=== PATIENT | female | born 1955 | race Hispanic/Latino ===

== ENCOUNTER → 2017-04-24 | Outpatient (CLI) | payer OTHER ==
[~2017-04-24] MED LIST: ALENDRONATE SOD35 MG PO; ANTIVERT25 MG PO; FENTANYL1 EAC5 TD; FLEXERIL5 MG PO; IBUPROFEN400 MG PO; LIPITOR20 MG PO; NAPROXEN500 MG PO; OMEPRAZOLE40 M1 PO; PREDNISONE10 MG PO; PRILOSEC40 MG PO; TRAMADOL HCL50 MG PO; ZOFRAN4 MG PO
== END | disposition home or self-care (01) ==
LOC: AMB 07:35
PROC: 03BS0ZX Excision of Right Temporal Artery, Open Approach, Diagnostic (ICD-10-PCS; principal; 2017-04-24)
DX: R51 Headache (principal); R70.0 Elevated erythrocyte sedimentation rate
CPT/HCPCS: 88305; 88313